=== PATIENT | female | born 1975 | race Caucasian/White ===

== ENCOUNTER 2016-07-28 11:05 | Emergency (ER) | payer SELFPAY ==
[~2016-07-28] VITALS: Ht 162.6 cm; Wt 45.0 kg
[2016-07-28 11:07] VITALS: BP 156/83; PULSE 102; RESP 24; TEMP 97.9; O2SAT 99
[2016-07-28] MEDS ORDERED: SODIUM CHLOR 0.9% 1000 ML INJ 1,000 ML IV SCH (12:12)
[2016-07-28] MEDS ORDERED: VANCOMYCIN INJ 700 MG in SODIUM CHLOR 0.9% 250 ML INJ 250 ML IV ONE (12:15)
[2016-07-28] MEDS ORDERED: TETANUS/DIPHTHERIA TOXOID ADULT 0.5 ML VIAL IM ONE (12:15)
[2016-07-28] MEDS ORDERED: MORPHINE SULFATE 4 MG/ML INJ IV PUSH ONE ×2 (12:15→16:45)
[2016-07-28 12:42] LABS: AUTOMATED NEUTROPHIL # 6.6 TH/MM3 (1.8-7.7); BASOPHIL % 0.3 % (0.0-2.0); EOSINOPHIL % 0.5 % (0.0-4.0); HEMO FLAGS DIFF FINAL; LYMPH % 16.4 % (9.0-44.0); LYMPHOCYTE # 1.4 TH/MM3 (1.0-4.8); MEAN CELL VOLUME 80.7 FL (80.0-100.0); MEAN CORPUSCULAR HEMOGLOBIN 26.9 PG (27.0-34.0); MEAN CORPUSCULAR HGB CONC 33.3 % (32.0-36.0); MONO % 5.3 % (0.0-8.0); NEUT % 77.5 % (16.0-70.0); PLATELET COUNT 407 TH/MM3 (150-450); RED BLOOD COUNT 5.21 MIL/MM3 (4.00-5.30); RED CELL DISTRIBUTION WIDTH 15.5 % (11.6-17.2); WHITE BLOOD COUNT 8.5 TH/MM3 (4.0-11.0)
[2016-07-28 12:51] LABS: BACTERIA, URINE RARE /hpf; BLOOD, URINE NEG (NEG); COMMENT (UR) CATH-CULTURE IND; CULTURE IF INDICATED CATH CULTURE IND; GLUCOSE,URINE NEG (NEG); KETONE, URINE NEG (NEG); MUCUS URINE FEW /lpf (OCC); NITRITE,URINE NEG (NEG); PH, URINE 6.5 (5.0-8.5); SQUAMOUS EPITHELIAL CELL URINE 15 /hpf (0-5); URINE COLOR YELLOW (YELLW/STRAW)
[2016-07-28 12:53] LABS: APTT (PATIENT) 23.6 SEC (24.3-30.1); INTERNATIONAL NORMALIZED RATIO 0.9 RATIO; PROTHROMBIN TIME - PATIENT 10.2 SEC (9.8-11.6)
[2016-07-28 12:59] LABS: ALKALINE PHOSPHATASE 153 U/L (45-117); TOTAL BILIRUBIN ADULT 0.4 MG/DL (0.2-1.0)
[2016-07-28 13:00] VITALS: BP 140/81; PULSE 96; RESP 17; TEMP 97.8; O2SAT 99
[2016-07-28 13:00] LABS: ALT (GPT) 23 U/L (10-53); ANION GAP 7 MEQ/L (5-15); AST (GOT) 23 U/L (15-37); BICARBONATE 27.1 MEQ/L (21.0-32.0); BLOOD UREA NITROGEN 10 MG/DL (7-18); CHLORIDE 105 MEQ/L (98-107); GLOMERULAR FILTRATION RATE 87 ML/MIN (>89); SODIUM (NA) 139 MEQ/L (136-145)
--- NOTE | 2016-07-28 13:13 | RADRPT ---
EXAM DATE/TIME: 07/28/2016 12:57 [place] COMPARISON: No previous studies available for comparison. INDICATIONS : Spider bite top of ankle swelling with redness. MEDICAL HISTORY : None. SURGICAL HISTORY : None. ENCOUNTER: Initial ACUITY: 2 days PAIN SCORE: 10/10 LOCATION: Left ankle. FINDINGS: There is focal soft tissue swelling along the dorsum of the left ankle. There is no acute fracture or dislocation. No radiopaque foreign bodies noted. CONCLUSION: Focal soft tissue swelling along the dorsum of the left ankle. No acute fracture, dis location or radiopaque foreign body. Virgilio Velazquez MD on July 28, 2016 at 13:11 Board Certified Radiologist. This report was verified electronically.
[2016-07-28] MEDS: SODIUM CHLORIDE 0.9% FLUSH 5 ML FLUSH IVF PRN ×2 (14:15→16:45)
[2016-07-28 15:00] VITALS: BP 142/81; PULSE 89; RESP 17; TEMP 97.8; O2SAT 99
[2016-07-28] MEDS ORDERED: LIDOCAINE HCL 1% 30 ML VIAL INFIL ONE (15:30)
[2016-07-28 16:50] VITALS: RESP 17
[2016-07-28 17:03] LABS: AMPHETAMINE, URINE NEG (NEG); BARBITURATES, URINE NEG (NEG); COCAINE, URINE POS (NEG)
[2016-07-28] MEDS ORDERED: CEPH-460 PO (17:47)
[2016-07-28] MEDS ORDERED: BACT800T5 PO (17:47)
--- NOTE | 2016-07-28 17:47 | PD ---
HPI Chief Complaint: Skin Problem Time Seen by Provider: 11:37 Travel History International Travel<30 days: No Contact w/Intl Traveler<30days: No Traveled to known affect area: No History of Present Illness HPI Patient is a 40-year-old female with history of IV drug abuse, presents to emergency room with complaints of abscess to her left foot. Patient reports that she thinks that she was bit by a bug on her left foot 2-3 days ago. Patient reports that the bug bites started out very small, reports that today the bite has turned into an abscess with redness surrounding it. Patient reports increased pain to her left foot as well as swelling. Patient denies injecting drugs into her left foot. Patient reports that her tetanus is not up- to-date. Denies fevers or chills. Denies nausea vomiting. PFSH Past Medical History Arthritis: No Asthma: No Autoimmune Disease: No Blood Disorders: No Anxiety: Yes Depression: Yes Heart Rhythm Problems: No Cancer: No Cardiovascular Problems: No High Cholesterol: No Chemotherapy: No Chest Pain: No Congestive Heart Failure: No COPD: No Cerebrovascular Accident: No Diabetes: No Diminished Hearing: No Endocrine: No GERD: No Genitourinary: Yes (ENDOMETRIOSIS) Hiatal Hernia: No Immune Disorder: No Kidney Stones: No Musculoskeletal: No Neurologic: No Psychiatric: Yes Reproductive: No (stopped menses 2yrs ago) Respiratory: Yes (MASS RIGHT LUNG) Migraines: No Radiation Therapy: No Renal Failure: No Seizures: No Sickle Cell Disease: No Sleep Apnea: No Thyroid Disease: No Ulcer: No Tetanus Vaccination: > 5 Years Influenza Vaccination: No ?: Not LMP: 2015 : 1 Para: 1 Past Surgical History Abdominal Surgery: Yes (ENDOMETRIOSIS) AICD: No Arteriovenous Shunt: No Cardiac Surgery: No Ear Surgery: No Endocrine Surgery: No Eye Surgery: No Genitourinary Surgery: No Gynecologic Surgery: No Insulin Pump: No Joint Replacement: No Oral Surgery: No Pacemaker: No Thoracic Surgery: No Other Surgery: Yes (L HAND FROM IV DRUG USE) Family History Family History: Negative Social History Alcohol Use: No (QUIT 2006) Tobacco Use: Yes (07/17 PPD) Substance Use: Yes (IV OXYCODONE, MORPHINE, DILAUDID) Allergies-Medications (Allergen,Severity, Reaction): Coded Allergies: *MDRO Multi-Drug Resistant Organism (Verified Adverse Reaction, Unknown, ) MRSA (forearm wound/fluid) - 01/18/16; MRSA (leg-06/02/16) Reported Meds & Prescriptions Reported Meds & Active Scripts Active Keflex (Cephalexin) 500 Mg Cap 500 Mg PO Q6H 10 Days Bactrim DS (Sulfamethoxazole-Trimethoprim) 800-160 Mg Tab 2 Tab PO BID Review of Systems General / Constitutional: No: Fever, Chills Eyes: No: Visual changes HENT: No: Headaches Cardiovascular: No: Chest Pain or Discomfort Respiratory: No: Shortness of Breath Gastrointestinal: No: Abdominal Pain Genitourinary: No: Dysuria Musculoskeletal: No: Pain Skin: Positive Other (abscess to left foot), No Rash Neurologic: No: Weakness Psychiatric: No: Depression Endocrine: No: Polydipsia Hematologic/Lymphatic: No: Easy Bruising Physical Exam Narrative GENERAL: Patient with no acute distress SKIN: Warm and dry. HEAD: Atraumatic. Normocephalic. EYES: Pupils equal and round. No scleral icterus. No injection or drainage. ENT: No nasal bleeding or discharge. Mucous membranes pink and moist. NECK: Trachea midline. No JVD. CARDIOVASCULAR: Regular rate and rhythm. No murmur appreciated. RESPIRATORY: No accessory muscle use. Clear to auscultation. Breath sounds equal bilaterally. GASTROINTESTINAL: Abdomen soft, non-tender, nondistended. Hepatic and splenic margins not palpable. MUSCULOSKELETAL: No obvious deformities. No clubbing. No cyanosis. Patient with track pack to b/l ac with no signs of infection. Patient with 2x2cm abscess to left medial dorsum of foot NEUROLOGICAL: Awake and alert. PSYCHIATRIC: Appropriate mood and affect; insight and judgment normal. Data Data Last Documented VS Vital Signs Date Time Temp Pulse Resp B/P Pulse Ox O2 Delivery O2 Flow Rate FiO2 07/28/16 16:50 17 07/28/16 15:00 97.8 89 142/81 99 Room Air Orders Complete Blood Count With Diff (07/28/16 12:12) Comprehensive Metabolic Panel (07/28/16 12:12) Urinalysis - C+S If Indicated (07/28/16 12:12) Blood Culture (07/28/16 12:12) Prothrombin Time / Inr (Pt) (07/28/16 12:12) Act Partial Throm Time (Ptt) (07/28/16 12:12) Iv Access Insert/Monitor (07/28/16 12:12) Morphine Inj (Morphine Inj) (07/28/16 12:15) Sodium Chlor 0.9% 1000 Ml Inj (Ns 1000 M (07/28/16 12:12) Sodium Chloride 0.9% Flush (Ns Flush) (07/28/16 12:15) Ed Urine Pregnancytest Poc (07/28/16 12:12) Ankle, Complete ([id number]) (07/28/16 ) Drug Screen, Random Urine (07/28/16 12:12) Vancomycin Inj (Vancomycin Inj) (07/28/16 12:15) Tetanus/Diphtheria Tox Adult (Tetanus/Di (07/28/16 12:15) Urine Culture (07/28/16 12:20) Lidocaine 1% Inj (Xylocaine 1% Inj) (07/28/16 15:30) Morphine Inj (Morphine Inj) (07/28/16 16:45) Labs Laboratory Tests Test 07/28/16 12:20 White Blood Count 8.5 TH/MM3 Red Blood Count 5.21 MIL/MM3 Hemoglobin 14.0 GM/DL Hematocrit 42.0 % Mean Corpuscular Volume 80.7 FL Mean Corpuscular Hemoglobin 26.9 PG Mean Corpuscular Hemoglobin 33.3 % Concent Red Cell Distribution Width 15.5 % Platelet Count 407 TH/MM3 Mean Platelet Volume 7.0 FL Neutrophils (%) (Auto) 77.5 % Lymphocytes (%) (Auto) 16.4 % Monocytes (%) (Auto) 5.3 % Eosinophils (%) (Auto) 0.5 % Basophils (%) (Auto) 0.3 % Neutrophils # (Auto) 6.6 TH/MM3 Lymphocytes # (Auto) 1.4 TH/MM3 Monocytes # (Auto) 0.4 TH/MM3 Eosinophils # (Auto) 0.0 TH/MM3 Basophils # (Auto) 0.0 TH/MM3 CBC Comment DIFF FINAL Differential Comment Prothrombin Time 10.2 SEC Prothromb Time International 0.9 RATIO Ratio Activated Partial 23.6 SEC Thromboplast Time Urine Color YELLOW Urine Turbidity HAZY Urine pH 6.5 Urine Specific [place] 1.011 Urine Protein TRACE mg/dL Urine Glucose (UA) NEG mg/dL Urine Ketones NEG mg/dL Urine Occult Blood NEG Urine Nitrite NEG Urine Bilirubin NEG Urine Urobilinogen LESS THAN 2.0 MG/DL Urine Leukocyte Esterase LARGE Urine RBC 5 /hpf Urine WBC 33 /hpf Urine Squamous Epithelial 15 /hpf Cells Urine Bacteria RARE /hpf Urine Mucus FEW /lpf Microscopic Urinalysis Comment CATH-CULTURE IND Sodium Level 139 MEQ/L Potassium Level 4.0 MEQ/L Chloride Level 105 MEQ/L Carbon Dioxide Level 27.1 MEQ/L Anion Gap 7 MEQ/L Blood Urea Nitrogen 10 MG/DL Creatinine 0.74 MG/DL Estimat Glomerular Filtration 87 ML/MIN Rate Random Glucose 93 MG/DL Calcium Level 9.5 MG/DL Total Bilirubin 0.4 MG/DL Aspartate Amino Transf 23 U/L (AST/SGOT) Alanine Aminotransferase 23 U/L (ALT/SGPT) Alkaline Phosphatase 153 U/L Total Protein 9.0 GM/DL Albumin 3.5 GM/DL Urine Opiates Screen NEG Urine Barbiturates Screen NEG Urine Amphetamines Screen NEG Urine Benzodiazepines Screen NEG Urine Cocaine Screen POS Urine Cannabinoids Screen POS MDM Medical Decision Making Medical Screen Exam Complete: Yes Emergency Medical Condition: Yes Interpretation(s) Vital Signs Date Time Temp Pulse Resp B/P Pulse Ox O2 Delivery O2 Flow Rate FiO2 07/28/16 16:50 17 07/28/16 15:00 97.8 89 17 142/81 99 Room Air 07/28/16 13:00 97.8 96 17 140/81 99 Room Air 07/28/16 12:28 17 07/28/16 11:17 17 07/28/16 11:07 97.9 102 24 156/83 99 Room Air CBC & BMP Diagram 07/28/16 12:20 Last Impressions Ankle X-Ray 07/28/16 0000 Signed Impressions: Service Date/Time: Thursday, July 28, 2016 12:57 - CONCLUSION: Focal soft tissue swelling along the dorsum of the left ankle. No acute fracture, dislocation or radiopaque foreign body. Virgilio Velazquez MD Differential Diagnosis Abscess and cellulitis to left foot for past 3 days. Narrative Course 40-year-old female with history of IV drug abuse, presents to the emergency room with abscess to left foot. Patient reports that she was bit by a bug 3 days ago and reports that the bug bites turned into an abscess. Patient reports that her tetanus is not up-to-date. Patient's tetanus is updated. CBC, BMP, x-ray of foot ordered to evaluate for possible osteomyelitis Patient's pain was managed with morphine. X-ray shows focal swelling on the dorsum left ankle. No osteomyelitis. Patient was given a dose of IV antibiotics Patient was I&D'ed, patient had significant pus drainage from abscess Discussed with patient need to return to the emergency room and 2 days for wound check. Discussed signs and symptoms of when to return to the emergency room. Discussed with patient that she needs to keep this area clean, recommended bacitracin dressings. Procedures Procedure Narrative INCISION AND DRAINAGE OF ABSCESS: The area was prepped and was sterilely draped. A subcutaneous wheal of 1 % lidocaine with a total number 2 mL was used to anesthetize the area properly. A number 11 scalpel was used to make a 0.5 -cm incision across the area of the abscess of left foot. The abscess was drained, complex loculations were broken down, and irrigated with normal saline. Sterile dressing applied. Patient advised to return to ER in 2 days for wound check. I did try to place packing to abscess, patient refused packing. Diagnosis Primary Impression: Cellulitis and abscess of foot, except toes Additional Impression: UTI (urinary tract infection) Qualified Code: N30.00 - Acute cystitis without hematuria Patient Instructions: Narcotic given in the ED, General Instructions Additional Instructions: Please return to ER as needed Please return to the emergency room in 2 days for wound check Please take full course of antibiotics Return to the emergency room immediately if you develop swelling, fevers chills , streaking or redness up your leg Med/Other Pt SpecificInfo: Prescription(s) given, Wound Care Scripts Cephalexin (Keflex)500 Mg Jru301 Mg PO Q6H 10 Days Ref 0 Prov:Mireille Chatman DO 07/28/16 Sulfamethoxazole-Trimethoprim (Bactrim DS)800-160 Mg Tab2 Tab PO BID #40 TAB Ref 0 Prov:Mireille Chatman DO 07/28/16 Disposition: 01 DISCHARGE HOME Condition: Stable Mireille Chatman DO Jul 28, 2016 17:47
[2016-07-28 17:54] VITALS: BP 122/77; TEMP 98.1
== END 2016-07-28 18:02 | disposition home or self-care (01) ==
LOC: NEPA 11:05
DX: L02.612 Cutaneous abscess of left foot (principal); N30.00 Acute cystitis without hematuria; B96.89 Other specified bacterial agents as the cause of diseases classified elsewhere; Z23 Encounter for immunization
CPT/HCPCS: 10060; 73610; 80053; 80307; 81001; 84703; 85025; 85610; 85730; 87040; 87086; 90471; 90714; 96361; 96365; 96375; 99283; J2270; J3370; J7030; J7050

== ENCOUNTER 2017-02-20 12:43 | Inpatient (IN) | payer SELFPAY ==
[~2017-02-20] VITALS: Ht 162.6 cm; Wt 47.1 kg
[~2017-02-20 12:43] MED LIST: BACT800T5 PO; CEPH-460 PO
[2017-02-20 12:48] VITALS: BP 115/70; PULSE 116; RESP 16; TEMP 98.6; O2SAT 99
--- NOTE | 2017-02-20 13:01 | PD ---
Physical Exam Time Seen by Provider: 13:00 Narrative 41 y/o female here with L jewell redness, tenderness. Hypothesizes she was bit by a spider. Vital signs reviewed. Seen at triage desk. Awaiting bed placement. Data Data Last Documented VS Vital Signs Date Time Temp Pulse Resp B/P Pulse Ox O2 Delivery O2 Flow Rate FiO2 02/20/17 12:48 98.6 116 16 115/70 99 MDM Medical Record Reviewed: Yes Supervised Visit with RODRIGO: Fan Levy Feb 20, 2017 13:01
--- NOTE | 2017-02-20 15:02 | PD ---
HPI Chief Complaint: Bite or Sting Time Seen by Provider: 15:01 Travel History International Travel<30 days: No Contact w/Intl Traveler<30days: No Traveled to known affect area: No History of Present Illness HPI 41 YO F with PMH of IVDA, MRSA presents to the ED for evaluation of "3 or 4" day history of left lower leg pain, redness and swelling. Gradual onset. Patient can't identify no acute injury. She denies IV drug use in the area. She endorses chills, nausea. She denies numbness, tingling, weakness, limitations to range of motion of the extremity. No treatment at that home. PFSH Past Medical History Arthritis: No Asthma: No Autoimmune Disease: No Blood Disorders: No Anxiety: Yes Depression: Yes Heart Rhythm Problems: No Cancer: No Cardiovascular Problems: No High Cholesterol: No Chemotherapy: No Chest Pain: No Congestive Heart Failure: No COPD: No Cerebrovascular Accident: No Diabetes: No Diminished Hearing: No Endocrine: No GERD: No Genitourinary: Yes (ENDOMETRIOSIS) Hiatal Hernia: No Immune Disorder: No Kidney Stones: No Musculoskeletal: No Neurologic: No Psychiatric: Yes Reproductive: No (stopped menses 2yrs ago) Respiratory: Yes (MASS RIGHT LUNG) Migraines: No Radiation Therapy: No Renal Failure: No Seizures: No Sickle Cell Disease: No Sleep Apnea: No Thyroid Disease: No Ulcer: No ?: Not : 1 Para: 1 Past Surgical History Abdominal Surgery: Yes (ENDOMETRIOSIS) AICD: No Arteriovenous Shunt: No Cardiac Surgery: No Ear Surgery: No Endocrine Surgery: No Eye Surgery: No Genitourinary Surgery: No Gynecologic Surgery: No Insulin Pump: No Joint Replacement: No Oral Surgery: No Pacemaker: No Thoracic Surgery: No Other Surgery: Yes (L HAND FROM IV DRUG USE) Social History Alcohol Use: No (QUIT 2006) Tobacco Use: Yes (07/17 PPD) Substance Use: Yes (IV OXYCODONE, MORPHINE, DILAUDID) Allergies-Medications (Allergen,Severity, Reaction): Coded Allergies: *MDRO Multi-Drug Resistant Organism (Verified Adverse Reaction, Unknown, ) MRSA (forearm wound/fluid) - 01/18/16; MRSA (leg-06/02/16) Reported Meds & Prescriptions Reported Meds & Active Scripts Active No Active Prescriptions or Reported Medications Review of Systems Except as stated in HPI: all other systems reviewed are Neg Physical Exam Narrative GENERAL: Thin, disheveled, distraught white female in no acute distress. SKIN: Focused skin assessment warm/dry. SKIN: There is an indurated area in the left anterior jewell which measures about 6 cm in diameter. It is fluctuant but there is no pointing or drainage. There is a zone of inflammation around it but no lymphangitis. HEAD: Normocephalic. EYES: No scleral icterus. No injection or drainage. NECK: Supple, trachea midline. No JVD or lymphadenopathy. CARDIOVASCULAR: Regular rate and rhythm without murmurs, gallops, or rubs. RESPIRATORY: Breath sounds clear and equal bilaterally. No accessory muscle use. GASTROINTESTINAL: Abdomen soft, non-tender, nondistended. MUSCULOSKELETAL: No cyanosis, or edema. Patient retains full, active, painless range of motion of the left lower extremity. BACK: Nontender without obvious deformity. No CVA tenderness. Data Data Last Documented VS Vital Signs Date Time Temp Pulse Resp B/P Pulse Ox O2 Delivery O2 Flow Rate FiO2 02/20/17 15:20 98.6 112 16 118/70 99 Room Air Orders Complete Blood Count With Diff (02/20/17 15:17) Blood Culture (02/20/17 15:17) Comprehensive Metabolic Panel (02/20/17 15:17) Direct Bilirubin (02/20/17 15:17) Wound Culture And Gram Stain (02/20/17 15:26) Ketorolac Inj (Toradol Inj) (02/20/17 15:30) Lidocaine 1% Inj (Xylocaine 1% Inj) (02/20/17 15:30) Urinalysis - C+S If Indicated (02/20/17 16:16) Ed Urine Pregnancytest Poc (02/20/17 16:16) Urine Culture (02/20/17 15:45) Lactic Acid Sepsis Protocol (02/20/17 16:35) Cefepime Inj (Maxipime Inj) (02/20/17 16:35) Vancomycin Inj (Vancomycin Inj) (02/20/17 16:35) Sodium Chlor 0.9% 1000 Ml Inj (Ns 1000 M (02/20/17 16:35) Sodium Chlor 0.9% 1000 Ml Inj (Ns 1000 M (02/20/17 16:35) Admit Order (Ed Use Only) (02/20/17 17:07) Labs Laboratory Tests Test 02/20/17 15:45 White Blood Count 27.1 TH/MM3 Red Blood Count 4.15 MIL/MM3 Hemoglobin 11.8 GM/DL Hematocrit 33.0 % Mean Corpuscular Volume 79.4 FL Mean Corpuscular Hemoglobin 28.5 PG Mean Corpuscular Hemoglobin 35.9 % Concent Red Cell Distribution Width 14.6 % Platelet Count 433 TH/MM3 Mean Platelet Volume 7.2 FL Neutrophils (%) (Auto) 95.5 % Lymphocytes (%) (Auto) 2.7 % Monocytes (%) (Auto) 1.7 % Eosinophils (%) (Auto) 0.0 % Basophils (%) (Auto) 0.1 % Neutrophils # (Auto) 25.8 TH/MM3 Lymphocytes # (Auto) 0.7 TH/MM3 Monocytes # (Auto) 0.5 TH/MM3 Eosinophils # (Auto) 0.0 TH/MM3 Basophils # (Auto) 0.0 TH/MM3 CBC Comment DIFF FINAL Differential Comment Urine Color YELLOW Urine Turbidity HAZY Urine pH 5.5 Urine Specific [place] 1.010 Urine Protein TRACE mg/dL Urine Glucose (UA) NEG mg/dL Urine Ketones NEG mg/dL Urine Occult Blood NEG Urine Nitrite NEG Urine Bilirubin NEG Urine Urobilinogen 2.0 MG/DL Urine Leukocyte Esterase LARGE Urine RBC 16 /hpf Urine WBC 11 /hpf Urine Squamous Epithelial 10 /hpf Cells Urine Amorphous Sediment RARE Urine Bacteria MANY /hpf Urine Mucus FEW /lpf Microscopic Urinalysis Comment CULTURE INDICATED Sodium Level 132 MEQ/L Potassium Level 4.7 MEQ/L Chloride Level 99 MEQ/L Carbon Dioxide Level 24.6 MEQ/L Anion Gap 8 MEQ/L Blood Urea Nitrogen 16 MG/DL Creatinine 1.07 MG/DL Estimat Glomerular Filtration 57 ML/MIN Rate Random Glucose 113 MG/DL Calcium Level 8.6 MG/DL Total Bilirubin 1.1 MG/DL Direct Bilirubin LESS THAN 0.1 MG/DL Aspartate Amino Transf 105 U/L (AST/SGOT) Alanine Aminotransferase 38 U/L (ALT/SGPT) Alkaline Phosphatase 431 U/L Total Protein 9.0 GM/DL Albumin 2.5 GM/DL MDM Medical Decision Making Medical Screen Exam Complete: Yes Emergency Medical Condition: Yes Differential Diagnosis Furuncle versus carbuncle versus abscess versus cellulitis versus other Narrative Course 41 YO F with PMH of IVDA, MRSA presents to the ED for evaluation of "3 or 4" day history of left lower leg pain, redness and swelling. Gradual onset. Patient can't identify no acute injury. She denies IV drug use in the area. She endorses chills, nausea. She denies numbness, tingling, weakness, limitations to range of motion of the extremity. Patient is afebrile and tachycardic on presentation. There is a large abscess on the anterior left jewell and possible early abscess on the right elbow. Physical exam otherwise unremarkable. I attempted an I&D but the patient would not allow me to continue secondary to pain. No one cultures were obtained. CBC: Leukocytosis of 27.1 with a left shift. Lactic acid 2.6. CMP: Sodium 32 UA: Hazy, large leukocyte esterase, 11 wbc's. Sepsis protocol was initiated. Patient was administered IV vancomycin and Zosyn. She is agreeable to admission. I spoke with Dr. Layton who agrees to accept the patient to the medicine service. Please see medicine notes for disposition. Procedures Procedure Narrative INCISION AND DRAINAGE OF ABSCESS: The area was prepped and was sterilely draped. A subcutaneous wheal of 1 % Xylocaine with epinephrine with a total number 2 mL was used to anesthetize the area properly. A number 11 scalpel was used to make a 0.5-cm incision across the area of the abscess. At this point the patient cried out in pain, sat up in the bed, grabbed my hand. She would not allow me to obtain cultures or continue the procedure. Sepsis Criteria SIRS Criteria (2 or more): Heart rate over 90, WBC > 78009, < 4000 or > 10% bands Sepsis Criteria (SIRS+source): Infect source susp/known Scripts No Active Prescriptions or Reported Meds Angeles Ott Feb 20, 2017 15:02
[2017-02-20 15:20] VITALS: BP 118/70; PULSE 112; RESP 16; TEMP 98.6; O2SAT 99
[2017-02-20] MEDS ORDERED: ASP: Does not meet inpatient admission criteria OTHER ONE (15:30)
[2017-02-20] MEDS ORDERED: ASP: Location of Dalbavancin administration OTHER ONE (15:30)
[2017-02-20] MEDS ORDERED: ASP: No known hypersensitivity to Vanco, Telavancin, Dalbavancin OTHER ONE (15:30)
[2017-02-20] MEDS ORDERED: KETOROLAC TROMETHAMINE 30 MG/ML (IVP) VIAL IVP ONE (15:30)
[2017-02-20] MEDS ORDERED: LIDOCAINE HCL 1% 30 ML VIAL INFIL ONE (15:30)
[2017-02-20] MEDS ORDERED: ASP: Only reason for admit - IV antibiotics OTHER ONE (15:30)
[2017-02-20 16:11] LABS: AUTOMATED NEUTROPHIL # 25.8 TH/MM3 (1.8-7.7); BASOPHIL % 0.1 % (0.0-2.0); HEMO FLAGS DIFF FINAL; LYMPH % 2.7 % (9.0-44.0); LYMPHOCYTE # 0.7 TH/MM3 (1.0-4.8); MEAN CELL VOLUME 79.4 FL (80.0-100.0); MEAN CORPUSCULAR HEMOGLOBIN 28.5 PG (27.0-34.0); MEAN CORPUSCULAR HGB CONC 35.9 % (32.0-36.0); MONO % 1.7 % (0.0-8.0); NEUT % 95.5 % (16.0-70.0); PLATELET COUNT 433 TH/MM3 (150-450); RED BLOOD COUNT 4.15 MIL/MM3 (4.00-5.30); RED CELL DISTRIBUTION WIDTH 14.6 % (11.6-17.2); WHITE BLOOD COUNT 27.1 TH/MM3 (4.0-11.0)
[2017-02-20] MEDS ORDERED: VANCOMYCIN INJ 1,000 MG in SODIUM CHLOR 0.9% 250 ML INJ 250 ML IV STA (16:35)
[2017-02-20] MEDS ORDERED: SODIUM CHLOR 0.9% 1000 ML INJ 1,000 ML IV ONE (16:35)
[2017-02-20] MEDS ORDERED: SODIUM CHLOR 0.9% 1000 ML INJ 800 ML IV ONE (16:35)
[2017-02-20] MEDS ORDERED: CEFEPIME INJ 2,000 MG in SODIUM CHLORIDE 0.9% INJ 100 ML IV STA (16:35)
[2017-02-20 16:36] LABS: ALT (GPT) 38 U/L (10-53); BACTERIA, URINE MANY /hpf; BLOOD, URINE NEG (NEG); COMMENT (UR) CULTURE INDICATED; CULTURE IF INDICATED CULTURE INDICATED; GLUCOSE,URINE NEG (NEG); KETONE, URINE NEG (NEG); MUCUS URINE FEW /lpf (OCC); NITRITE,URINE NEG (NEG); PH, URINE 5.5 (5.0-8.5); SQUAMOUS EPITHELIAL CELL URINE 10 /hpf (0-5); URINE COLOR YELLOW (YELLW/STRAW)
[2017-02-20 16:37] LABS: ANION GAP 8 MEQ/L (5-15); AST (GOT) 105 U/L (15-37); BICARBONATE 24.6 MEQ/L (21.0-32.0); BLOOD UREA NITROGEN 16 MG/DL (7-18); CHLORIDE 99 MEQ/L (98-107); GLOMERULAR FILTRATION RATE 57 ML/MIN (>89); SODIUM (NA) 132 MEQ/L (136-145)
[2017-02-20 16:39] LABS: ALKALINE PHOSPHATASE 431 U/L (45-117); POTASSIUM 4.7 MEQ/L (3.5-5.1); TOTAL BILIRUBIN ADULT 1.1 MG/DL (0.2-1.0)
[2017-02-20] MEDS ORDERED: NALOXONE HCL 0.4 MG/ML AMP IV PRN (17:30)
[2017-02-20] MEDS ORDERED: MAGNESIUM HYDROXIDE SUSP 30 ML CUP PO PRN (17:30)
[2017-02-20] MEDS ORDERED: SENNOSIDES 8.6 MG TAB PO PRN (17:30)
[2017-02-20] MEDS ORDERED: BISACODYL 10 MG SUPP RECTAL PRN (17:30)
[2017-02-20] MEDS ORDERED: ACETAMINOPHEN 325 MG TAB PO PRN (17:30)
[2017-02-20] MEDS ORDERED: ONDANSETRON HCL 4 MG/2 ML VIAL IVP PRN (17:30)
[2017-02-20] MEDS ORDERED: LACTULOSE SYRUP 20 GM/30 ML CUP PO PRN (17:30)
[2017-02-20] MEDS ORDERED: VANCOMYCIN INJ 1,000 MG in SODIUM CHLOR 0.9% 250 ML INJ 250 ML IV SCH (17:45)
[2017-02-20] MEDS ORDERED: Vancomycin Consult Pharmacy 1 EA OTHER SCH (17:45)
[2017-02-20] MEDS ORDERED: ACETAMINOPHEN/HYDROcodone 325 MG/5 MG TAB PO PRN (17:45)
--- NOTE | 2017-02-20 18:05 | HHI.HP ---
HPI Service [facility] Hospitalists Primary Care Physician No Primary Care Physician Admission Diagnosis SEPSIS abscess, cellulitis, UTI Diagnoses: Chief Complaint: Left leg abscess Travel History International Travel<30 Days: No Contact w/Intl Traveler <30 Da: No Traveled to Known Affected Are: No Sepsis Criteria SIRS Criteria (2 or more): Heart rate over 90, WBC > 55991, < 4000 or > 10% bands Sepsis Criteria (SIRS+source): Infect source susp/known History of Present Illness This is a 41-year-old female with a past medical history significant for hepatitis C, IV drug use, history of recurrent abscesses, history of MRSA and endometriosis who presents to [facility] ED with complaints of left lower leg pain and swelling since Sunday. Patient thinks she may have been bitten by a bug. She is adamant that she did not inject IV drugs in the leg. She states on Sunday she drained the area herself with a large amount of pus expressed followed by application of topical Neosporin. She endorses fever and chills. She denies any numbness, tingling or weakness in the area. She reports some chest pain today but she attributes that to anxiety coming into the hospital. She denies any shortness of breath. She denies any hematuria or dysuria. She denies any diarrhea or constipation. In the ED, patient is found to have elevated white count of 27.1. She is tachycardic with a heart rate of 116. She is afebrile. Lactic acid is pending. Review of Systems Except as stated in HPI: all other systems reviewed are Neg Past Family Social History Past Medical History IVDU Hep C Endometriosis Anxiety Recurrent abscesses Past Surgical History Previous I&D of the arm Right knee arthroscopic surgery Bronchoscopy Laparotomy Reported Medications No Active Prescriptions or Reported Medications Allergies: Coded Allergies: *MDRO Multi-Drug Resistant Organism (Verified Adverse Reaction, Unknown, ) MRSA (forearm wound/fluid) - 01/18/16; MRSA (leg-06/02/16) Active Ordered Medications Current Medications Medications (Trade) Dose Ordered Sig/Umm Route Start Time Stop Time Status Last Admin Sodium Chloride 1,000 ml @ 1,000 mls/hr Q1H ONCE IV 02/20/17 16:35 02/20/17 17:34 02/20/17 17:22 (NS 1000 ml Inj) 1,000 ml @ 100 mls/hr Q10H IV 02/20/17 17:22 UNV (NS Flush) 2 ml UNSCH PRN IV FLUSH 02/20/17 17:30 UNV (NS Flush) 2 ml BID IV FLUSH 02/20/17 21:00 UNV (Tylenol) 650 mg Q4H PRN PO 02/20/17 17:30 UNV (Zofran Inj) 4 mg Q6H PRN IVP 02/20/17 17:30 UNV (Narcan Inj) 0.4 mg UNSCH PRN IV 02/20/17 17:30 UNV (Brenad-Colace) 1 tab BID PO 02/20/17 21:00 UNV (Milk Of Magnesia Liq) 30 ml Q12H PRN PO 02/20/17 17:30 UNV (Senokot) 17.2 mg Q12H PRN PO 02/20/17 17:30 UNV (Dulcolax Supp) 10 mg DAILY PRN RECTAL 02/20/17 17:30 UNV (Lactulose Liq) 30 ml DAILY PRN PO 02/20/17 17:30 UNV Family History Father, age 63, [place] Mother, , surgery complication Social History Patient admits to tobacco use of 5 cigarettes per day. Previously she smoked half pack per day and began smoking at age 15. She denies any alcohol use. She admits to IV drug use of morphine, Dilaudid and oxycodone and last used IV Dilaudid 1 week ago. Physical Exam Vital Signs Vital Signs Date Time Temp Pulse Resp B/P Pulse Ox O2 Delivery O2 Flow Rate FiO2 02/20/17 15:20 98.6 112 16 118/70 99 Room Air 02/20/17 12:48 98.6 116 16 115/70 99 Physical Exam GENERAL: This is a thin frail female, in no apparent distress. Appears older than stated age. SKIN: 6 cm indurated area on the left anterior jewell with surrounding area of erythema. The is soft and fluctuant but no active drainage noted. Patient has multiple pick pack over skin. HEAD: Atraumatic. Normocephalic. No temporal or scalp tenderness. EYES: Pupils equal round and reactive. Extraocular motions intact. No scleral icterus. No injection or drainage. ENT: Nose without bleeding or purulent drainage. Throat without erythema, tonsillar hypertrophy or exudate. Uvula midline. Airway patent. NECK: Trachea midline. No lymphadenopathy. Supple, nontender, no meningeal signs. CARDIOVASCULAR: Regular rate and rhythm without murmurs, gallops, or rubs. RESPIRATORY: Clear to auscultation. Breath sounds equal bilaterally. No wheezes , rales, or rhonchi. GASTROINTESTINAL: Abdomen soft, non-tender, nondistended. No hepato-splenomegaly , or palpable masses. No guarding. MUSCULOSKELETAL: Extremities without clubbing, cyanosis, or edema. No joint tenderness, effusion, or edema noted. No calf tenderness. NEUROLOGICAL: Awake and alert. Able to move all extremities. Normal speech. Laboratory Laboratory Tests Test 02/20/17 15:45 White Blood Count 27.1 Red Blood Count 4.15 Hemoglobin 11.8 Hematocrit 33.0 Mean Corpuscular Volume 79.4 Mean Corpuscular Hemoglobin 28.5 Mean Corpuscular Hemoglobin 35.9 Concent Red Cell Distribution Width 14.6 Platelet Count 433 Mean Platelet Volume 7.2 Neutrophils (%) (Auto) 95.5 Lymphocytes (%) (Auto) 2.7 Monocytes (%) (Auto) 1.7 Eosinophils (%) (Auto) 0.0 Basophils (%) (Auto) 0.1 Neutrophils # (Auto) 25.8 Lymphocytes # (Auto) 0.7 Monocytes # (Auto) 0.5 Eosinophils # (Auto) 0.0 Basophils # (Auto) 0.0 CBC Comment DIFF FINAL Differential Comment Urine Color YELLOW Urine Turbidity HAZY Urine pH 5.5 Urine Specific [place]ira 1.010 Urine Protein TRACE Urine Glucose (UA) NEG Urine Ketones NEG Urine Occult Blood NEG Urine Nitrite NEG Urine Bilirubin NEG Urine Urobilinogen 2.0 Urine Leukocyte Esterase LARGE Urine RBC 16 Urine WBC 11 Urine Squamous Epithelial 10 Cells Urine Amorphous Sediment RARE Urine Bacteria MANY Urine Mucus FEW Microscopic Urinalysis Comment CULTURE INDICATED Sodium Level 132 Potassium Level 4.7 Chloride Level 99 Carbon Dioxide Level 24.6 Anion Gap 8 Blood Urea Nitrogen 16 Creatinine 1.07 Estimat Glomerular Filtration 57 Rate Random Glucose 113 Calcium Level 8.6 Total Bilirubin 1.1 Direct Bilirubin LESS THAN 0.1 Aspartate Amino Transf 105 (AST/SGOT) Alanine Aminotransferase 38 (ALT/SGPT) Alkaline Phosphatase 431 Total Protein 9.0 Albumin 2.5 Date/Time Procedure Status Source Growth 02/20/17 15:45 Urine Culture Received Urine Clean Catch Pending 02/20/17 15:45 Gram Stain - Final Resulted Wound Leg 02/20/17 15:45 Wound Culture Resulted Wound Leg Pending 02/20/17 15:45 Aerobic Blood Culture Received Blood Line Pending 02/20/17 15:45 Anaerobic Blood Culture Received Blood Line Pending Result Diagram: 02/20/17 1545 02/20/17 1545 Assessment and Plan Assessment and Plan 41-year-old female with a past medical history significant for hepatitis C, IV drug use, history of recurrent abscesses, history of MRSA and endometriosis who presents to [facility] ED with complaints of left lower leg pain and swelling since Sunday and found to have a large erythematous abscess left lower leg. Sepsis with tachycardia and elevated white count with source of left lower leg abscess/cellulitis Previous history of MRSA Consult infectious disease Patient given vancomycin and cefepime in the ED. Will continue. Lactic acid pending. We'll follow up. Follow-up on blood culture and wound culture results. Obtain soft tissue ultrasound with possible abscess and need for surgical evaluation Urinary tract infection IV cefepime Follow-up on urine culture results Leukocytosis Tachycardia Secondary to UTI and left leg abscess IV antibiotics IV fluid A.m. labs to monitor trend PRISCILLA Likely due to dehydration IV fluid Avoid nephrotoxic agents A.m. labs to monitor trend Hyponatremia Likely due to dehydration A.m. labs to monitor Hep C Transaminitis Elevated alkaline phosphatase Hep C reactive 01/22/16 Liver ultrasound A.m. labs ordered Ongoing tobaccoism IV drug use Discussed cessation/counseling Nicotine patch ordered DVT prophylaxis Lovenox 40sq Discussed Condition With Dr. Layton, patient, ED PA Physician Certification 2 Midnight Certification Type: Admission for Inpatient Services Order for Inpatient Services The services are ordered in accordance with Medicare regulations or non- Medicare payer requirements, as applicable. In the case of services not specified as inpatient-only, they are appropriately provided as inpatient services in accordance with the 2-midnight benchmark. Estimated LOS (days): 3 3 days is the estimated time the patient will need to remain in the hospital, assuming treatment plan goals are met and no additional complications. Post-Hospital Plan: Not yet determined Collaborating MD Comments Patient complaining of a painful wound on her left lower extremity. She stated that she thinks it started off as a bug bite a few days ago and grew quickly. Patient has history of IV drug use. Denies any fevers or chills. She has no complaints. She denies any urinary symptoms. gen in NAD but very anxious due to pain for an attempted I&D. CV. RRR. no r/m/g Resp CTA B/L abd soft NDNT LE left anterior jewell with wound + erythema and very painful to palpation. + fluctuance. Left lower extremity cellulitis -We'll get ultrasound to see there is any loculation. ED provider Unable to successfully perform an I&D. -We'll give broad-spectrum antibiotics with cefepime and vancomycin -Consult infectious disease to see history of multiple infections. Sepsis -Increased leukocytosis and tachycardia plus infectious source which means patient meets sepsis criteria. -Continuous report of care with IV fluids and treatment as above. -Continue monitor closely. Asymptomatic bacteriuria -Pending urine cultures. Patient will be on antibiotics. History of IV drug use -Will get a urine drug screen. Attestation The exam, history, and the medical decision-making described in the above note were completed with the assistance of the mid-level provider. I reviewed and agree with the findings presented. I attest that I had a [id number] encounter with the patient on the same day, and personally performed and documented my assessment and findings in the medical record. Doris Kuhn Feb 20, 2017 18:05 Sandra Layton MD Feb 20, 2017 18:19
[2017-02-20] MEDS: SODIUM CHLOR 0.9% 1000 ML INJ 1,000 ML IV SCH (18:14)
[2017-02-20 19:28] LABS: LACTIC ACID GHOST NOT REPORTABLE
[2017-02-20 19:43] VITALS: BP 93/57; PULSE 71; RESP 18; TEMP 97.5; O2SAT 100
[2017-02-20] MEDS: ENOXAPARIN SODIUM 40 MG/0.4 ML SYRINGE SQ SCH (20:58)
[2017-02-20] MEDS: DOCUSATE SODIUM 50 MG/SENNA 8.6 MG TAB PO SCH (21:00)
--- NOTE | 2017-02-20 21:02 | RADRPT ---
EXAM DATE/TIME: 02/20/2017 19:45 [place] COMPARISON: No previous studies available for comparison. INDICATIONS : Increased lab values. MEDICAL HISTORY : Right lung mass. Endometriosis. Depression. Anxiety. Substance use. Tobacco use. MRSA. SURGICAL HISTORY : Endometrial surgery. Right knee and hand surgery. Left hand surgery from IV drug use. ENCOUNTER: Initial ACUITY: 1 day PAIN SCORE: 9/10 LOCATION: Bilateral upper quadrant MEASUREMENTS: LIVER: 18.6 cm length COMMON DUCT: 3 mm RIGHT KIDNEY: 11.1 x 5.0 x 4.8 cm SPLEEN: 14.3 cm length FINDINGS: Spleen mildly enlarged to 14 cm and delivered to 19 cm. Colon wall thickening present. No gallstones or biliary ductal dilatation. Portal venous flow normal direction. Right kidney measures 11 cm in [facility]. No hydronephrosis. No free fluid. CONCLUSION: 1. Mild hepatosplenomegaly. Gallbladder wall thickening. No gallstones or biliary ductal dilatation. Esteban Whatley MD on February 20, 2017 at 21:00 Board Certified Radiologist. This report was verified electronically.
[2017-02-20] MEDS: NICOTINE 7 MG/24 HR PATCH T-DERMAL SCH (22:21)
[2017-02-20 22:26] LABS: AMPHETAMINE, URINE NEG (NEG); BARBITURATES, URINE NEG (NEG); COCAINE, URINE NEG (NEG)
[2017-02-20] MEDS: SODIUM CHLORIDE 0.9% FLUSH 10 ML FLUSH IV FLUSH SCH (22:28)
[2017-02-20] MEDS: ACETAMINOPHEN/HYDROcodone 325 MG/10 MG TAB PO PRN (22:29)
[2017-02-21] VITALS: BP 93/53; PULSE 65; RESP 20; TEMP 97; O2SAT 100
[2017-02-21 04:00] VITALS: BP 92/60; PULSE 64; RESP 20; TEMP 97; O2SAT 99
[2017-02-21] MEDS: SODIUM CHLOR 0.9% 1000 ML INJ 1,000 ML IV SCH ×3 (04:12→23:44)
[2017-02-21] MEDS: VANCOMYCIN INJ 750 MG in SODIUM CHLOR 0.9% 250 ML INJ 250 ML IV SCH ×2 (04:13→18:30)
[2017-02-21] MEDS: SODIUM CHLORIDE 0.9% FLUSH 10 ML FLUSH IV FLUSH PRN ×2 (04:13→11:55)
[2017-02-21] MEDS ORDERED: CEFEPIME INJ 2,000 MG in SODIUM CHLORIDE 0.9% INJ 100 ML IV SCH (06:00)
[2017-02-21 07:16] LABS: AUTOMATED NEUTROPHIL # 9.1 TH/MM3 (1.8-7.7); BASOPHIL % 0.3 % (0.0-2.0); EOSINOPHIL # 0.1 TH/MM3 (0-0.4); EOSINOPHIL % 0.7 % (0.0-4.0); HEMATOCRIT 31.4 % (35.0-46.0); HEMO FLAGS DIFF FINAL; LYMPH % 19.6 % (9.0-44.0); LYMPHOCYTE # 2.4 TH/MM3 (1.0-4.8); MEAN CELL VOLUME 81.9 FL (80.0-100.0); MEAN CORPUSCULAR HEMOGLOBIN 26.5 PG (27.0-34.0); MEAN CORPUSCULAR HGB CONC 32.3 % (32.0-36.0); MONO % 4.7 % (0.0-8.0); NEUT % 74.7 % (16.0-70.0); PLATELET COUNT 375 TH/MM3 (150-450); RED BLOOD COUNT 3.84 MIL/MM3 (4.00-5.30); RED CELL DISTRIBUTION WIDTH 15.1 % (11.6-17.2); WHITE BLOOD COUNT 12.2 TH/MM3 (4.0-11.0)
[2017-02-21 07:46] LABS: ALKALINE PHOSPHATASE 275 U/L (45-117); ALT (GPT) 24 U/L (10-53); ANION GAP 7 MEQ/L (5-15); AST (GOT) 28 U/L (15-37); BICARBONATE 23.7 MEQ/L (21.0-32.0); BLOOD UREA NITROGEN 14 MG/DL (7-18); CHLORIDE 111 MEQ/L (98-107); GLOMERULAR FILTRATION RATE 99 ML/MIN (>89); POTASSIUM 3.2 MEQ/L (3.5-5.1); SODIUM (NA) 142 MEQ/L (136-145); TOTAL BILIRUBIN ADULT 0.3 MG/DL (0.2-1.0)
[2017-02-21] MEDS: ACETAMINOPHEN/HYDROcodone 325 MG/10 MG TAB PO PRN ×4 (07:54→20:20)
[2017-02-21] MEDS: NICOTINE 7 MG/24 HR PATCH T-DERMAL SCH (07:54)
[2017-02-21] MEDS: DOCUSATE SODIUM 50 MG/SENNA 8.6 MG TAB PO SCH ×2 (07:54→20:20)
[2017-02-21] MEDS: REMOVE OLD NICOTINE PATCH T-DERMAL SCH (07:55)
[2017-02-21] MEDS: SODIUM CHLORIDE 0.9% FLUSH 10 ML FLUSH IV FLUSH SCH ×2 (07:57→20:17)
[2017-02-21 08:00] VITALS: BP 113/75; PULSE 66; RESP 15; TEMP 95.8; O2SAT 100
[2017-02-21] MEDS ORDERED: POTASSIUM CHLORIDE 10 MEQ CONTROLLED RELEASE TAB PO ONE (10:30)
--- NOTE | 2017-02-21 10:41 | HHI.PR ---
Subjective Remarks Follow-up for sepsis and right lower extreme cellulitis Patient refused the ultrasound. She is asking for more pain medication. She was found sleeping in bed awaken by me. She remains afebrile. Otherwise no acute events. Dealt with patient's nurse in regards to patient's care. Objective Vitals Vital Signs Date Time Temp Pulse Resp B/P Pulse Ox O2 Delivery O2 Flow Rate FiO2 02/21/17 08:00 95.8 66 15 113/75 100 02/21/17 04:00 97.0 64 20 92/60 99 02/21/17 00:00 97.0 65 20 93/53 100 02/20/17 19:43 97.5 71 18 93/57 100 Room Air 02/20/17 15:20 98.6 112 16 118/70 99 Room Air 02/20/17 12:48 98.6 116 16 115/70 99 I/O 02/20/17 02/20/17 02/20/17 02/21/17 02/21/17 02/21/17 07:00 15:00 23:00 07:00 15:00 23:00 Intake Total 240 ml 667 ml Output Total 200 ml Balance 240 ml 467 ml Intake Oral 240 ml 280 ml IV Total 387 ml Output Urine Total 200 ml # Voids 1 # Bowel Movements 0 Result Diagram: 02/21/17 0556 02/21/17 0526 Objective Remarks GENERAL: This is a thin frail female, in no apparent distress sleeping in bed. SKIN: 6 cm indurated area on the left anterior jewell with drastic improvement and erythema around the area. The is soft and fluctuant but no active drainage noted. CARDIOVASCULAR: Regular rate and rhythm without murmurs, gallops, or rubs. RESPIRATORY: Clear to auscultation. Breath sounds equal bilaterally. No wheezes , rales, or rhonchi. GASTROINTESTINAL: Abdomen soft, non-tender, nondistended. No hepato-splenomegaly , or palpable masses. No guarding. MUSCULOSKELETAL: Extremities without clubbing, cyanosis, or edema. No joint tenderness, effusion, or edema noted. No calf tenderness. NEUROLOGICAL: Awake and alert. Able to move all extremities. Normal speech. Medications and IVs Current Medications Miscellaneous Medication (ASP Crit: No rxn to Dal[place]in/Vanco/ [place]) 1 ONCE ONCE OTHER ; Start 02/20/17 at 15:30; Stop 02/20/17 at 15:31; Status Cancel Miscellaneous Medication (ASP Crit: Does not meet inpt admit criteria) 1 ONCE ONCE OTHER ; Start 02/20/17 at 15:30; Stop 02/20/17 at 15:31; Status Cancel Miscellaneous Medication (ASP Crit:Only reason for admit - IV antibioti) 1 ONCE ONCE OTHER ; Start 02/20/17 at 15:30; Stop 02/20/17 at 15:31; Status Cancel Miscellaneous Medication (ASP Crit: Location of [place]in admin) 1 ONCE ONCE OTHER ; Start 02/20/17 at 15:30; Stop 02/20/17 at 15:31; Status Cancel Ketorolac Tromethamine (Toradol Inj) 30 mg ONCE ONCE IVP Last administered on 02/20/17 16:04; Start 02/20/17 at 15:30; Stop 02/20/17 at 15:31; Status DC Lidocaine HCl 30 ml 30 ml ONCE ONCE INFIL Last administered on 02/20/17 16:03 ; Start 02/20/17 at 15:30; Stop 02/20/17 at 15:31; Status DC Cefepime HCl 2000 mg/Sodium Chloride 100 ml @ 200 mls/hr ONCE STAT IV Last administered on 02/20/17 18:13; Start 02/20/17 at 16:35; Stop 02/20/17 at 17:04; Status DC Vancomycin HCl 1000 mg/Sodium Chloride 250 ml @ 250 mls/hr ONCE STAT IV Last administered on 02/20/17 17:21; Start 02/20/17 at 16:35; Stop 02/20/17 at 17:39; Status DC Sodium Chloride 1,000 ml @ 1,000 mls/hr Q1H ONCE IV Last administered on 17:22; Start 02/20/17 at 16:35; Stop 02/20/17 at 17:39; Status DC Sodium Chloride 800 ml @ 1,000 mls/hr Q48M ONCE IV Last administered on 17:21; Start 02/20/17 at 16:35; Stop 02/20/17 at 17:22; Status DC Sodium Chloride (NS 1000 ml Inj) 1,000 ml @ 100 mls/hr Q10H IV Last administered on 02/21/17 04:12; Start 02/20/17 at 18:00 Sodium Chloride (NS Flush) 2 ml UNSCH PRN IV FLUSH FLUSH AFTER USING IV ACCESS Last administered on 02/21/17 04:13; Start 02/20/17 at 17:30 Sodium Chloride (NS Flush) 2 ml BID IV FLUSH Last administered on 02/20/17 22: 28; Start 02/20/17 at 21:00 Acetaminophen (Tylenol) 650 mg Q4H PRN PO TEMP > 100.4; Start 02/20/17 at 17:30 Ondansetron HCl (Zofran Inj) 4 mg Q6H PRN IVP NAUSEA OR VOMITING Last administered on 02/20/17 22:29; Start 02/20/17 at 17:30 Naloxone HCl (Narcan Inj) 0.4 mg UNSCH PRN IV SEE LABEL COMMENTS; Start at 17:30 Senna/Docusate Sodium (Brenda-Colace) 1 tab BID PO Last administered on 02/21/17 07:54; Start 02/20/17 at 21:00 Magnesium Hydroxide (Milk Of Magnesia Liq) 30 ml Q12H PRN PO MILD - MODERATE CONSTIPATION; Start 02/20/17 at 17:30 Sennosides (Senokot) 17.2 mg Q12H PRN PO MODERATE - SEVERE CONSTIPATION; Start 02/20/17 at 17:30 Bisacodyl (Dulcolax Supp) 10 mg DAILY PRN RECTAL SEVERE CONSITIPATION; Start at 17:30 Lactulose 30 ml 30 ml DAILY PRN PO SEVERE CONSITIPATION; Start 02/20/17 at 17:30 Pharmacy Profile Note 0 ml @ 0 mls/hr UNSCH OTHER ; Start 02/20/17 at 17:45 Vancomycin HCl 1000 mg/Sodium Chloride 250 ml @ 250 mls/hr Q12H IV ; Start 02/20 at 17:45; Status UNV Cefepime HCl/ Sodium Chloride (Maxipime Inj/NS Inj) 100 ml @ 200 mls/hr Q12H IV Last administered on 02/21/17 04:32; Start 02/21/17 at 06:00 Acetaminophen/ Hydrocodone Bitart (Belpre 10-325 Mg) 1 tab Q4H PRN PO PAIN SCALE 6 TO 10 Last administered on 02/21/17 07:54; Start 02/20/17 at 17:45 Acetaminophen/ Hydrocodone Bitart (Belpre 5-325 Mg) 1 tab Q4H PRN PO PAIN SCALE 1 TO 5; Start 02/20/17 at 17:45 Enoxaparin Sodium (Lovenox Inj) 40 mg Q24H SQ Last administered on 02/20/17 20: 58; Start 02/20/17 at 20:00 Nicotine (Habitrol 7 Mg Patch.24 Hr) 1 patch DAILY T-DERMAL Last administered on 02/21/17 07:54; Start 02/20/17 at 20:00 Miscellaneous Information 1 1 DAILY T-DERMAL Last administered on 02/21/17 07: 55; Start 02/21/17 at 09:00 Vancomycin HCl/ Sodium Chloride (Vancomycin Inj/ NS 250 ml Inj) 257.5 ml @ 250 mls/hr Q12H IV Last administered on 02/21/17 04:13; Start 02/21/17 at 05:00 Miscellaneous Information SPECIFIC LAB TO BE ... ONCE ONCE .XX ; Start 02/22 at 04:45; Stop 02/22/17 at 04:46 Potassium Chloride (KCl) 30 meq ONCE ONCE PO ; Start 02/21/17 at 10:30; Stop 02/21/17 at 10:39; Status DC A/P Assessment and Plan 41-year-old female with a past medical history significant for hepatitis C, IV drug use, history of recurrent abscesses, history of MRSA and endometriosis who presents to [facility] ED with complaints of left lower leg pain and swelling since Sunday and found to have a large erythematous abscess left lower leg. Sepsis with tachycardia and elevated white count with source of left lower leg abscess/cellulitis Previous history of MRSA Consult infectious disease Patient given vancomycin and cefepime in the ED. Will continue. Pending blood and wound cultures. Refused soft tissue ultrasound despite recommendations. Continue with pain control with Belpre. Will give Toradol when necessary for pain. Asymptomatic bacteriuria IV cefepime Follow-up on urine culture results Leukocytosis Tachycardia Improved. Secondary to UTI and left leg abscess Continue with IV antibiotics pending cultures and IV fluids. PRISCILLA Resolved. Continue to monitor trend. Hyponatremia Asymptomatic resolved. Hep C Transaminitis Elevated alkaline phosphatase Hep C reactive 01/22/16 Liver ultrasound shows mild hepatosplenomegaly. Improving. Noncompliance. Patient told to follow-up as outpatient. Ongoing tobaccoism IV drug use Discussed cessation/counseling Nicotine patch ordered DVT prophylaxis Lovenox 40sq Sandra Layton MD Feb 21, 2017 10:41
[2017-02-21] MEDS ORDERED: KETOROLAC TROMETHAMINE 30 MG/ML (IVP) VIAL IV PUSH PRN (10:45)
--- NOTE | 2017-02-21 11:14 | PD.CONS ---
History of Present Illness Service Infectious disease Consult Requested By Dr Layton Reason for Consult Evaluate patient with cellulitis left lower extremity Primary Care Physician No Primary Care Physician Diagnoses: History of Present Illness Patient seen and examined. Records reviewed. Patient is a 41-year-old female, presented to the hospital for further evaluation of pain and swelling on her left lower extremity. Patient states that she's had problem with multiple bug bites in her lower extremity. He developed swelling and pain on her left leg, and there was an area that looked like a boil, and she apparently drained it. It was not improving, and she continued to have the same symptoms so she presented to the hospital for further evaluation and treatment. She denies any fever or chills or sweats. A shunt has known IV drug use but denies injecting in her lower extremity. She usually injects in her upper extremity. On presentation patient's WBC was up to 27,000. She was tachycardic, but she is not febrile. She was started on broad-spectrum antibiotics. Today her white count is down to 12,000. She has not had any fever since admission. Infectious disease consultation has been requested to evaluate the patient. Review of Systems Constitutional: DENIES: Fever, Chills, Night Sweats Eyes: DENIES: Eye pain Ears, nose, mouth, throat: DENIES: Nasal discharge, Oral lesions, Throat pain, Ear Pain, Sinus Pain Respiratory: DENIES: Cough, Shortness of breath Cardiovascular: DENIES: Chest pain, Palpitations, Dyspnea on Exertion Gastrointestinal: DENIES: Abdominal pain, Constipation, Diarrhea, Nausea, Vomiting Genitourinary: DENIES: Dysuria, Nocturia Musculoskeletal: DENIES: Joint pain, Joint Swelling Integumentary: COMPLAINS OF: Rash Neurologic: DENIES: Headache Psychiatric: DENIES: Hallucinations Past Family Social History Allergies: Coded Allergies: *MDRO Multi-Drug Resistant Organism (Verified Adverse Reaction, Unknown, ) MRSA (forearm wound/fluid) - 01/18/16; MRSA (leg-06/02/16) Past Medical History IVDU Hep C Endometriosis Anxiety Recurrent abscesses Past Surgical History Previous I&D of the arm Right knee arthroscopic surgery Bronchoscopy Laparotomy Active Ordered Medications Tylenol [place] Dulcolax Cefepime Lovenox Portal Lactulose MOM Zofran Brenda-Colace Senokot Vancomycin Family History Noncontributory Social History Patient admits to tobacco use of 5 cigarettes per day. Previously she smoked half pack per day and began smoking at age 15. She denies any alcohol use. She admits to IV drug use of morphine, Dilaudid and oxycodone and last used IV Dilaudid 1 week ago. Physical Exam Vital Signs Vital Signs Date Time Temp Pulse Resp B/P Pulse Ox O2 Delivery O2 Flow Rate FiO2 02/21/17 08:54 18 02/21/17 08:00 95.8 66 15 113/75 100 02/21/17 04:00 97.0 64 20 92/60 99 02/21/17 00:00 97.0 65 20 93/53 100 02/20/17 19:43 97.5 71 18 93/57 100 Room Air 02/20/17 15:20 98.6 112 16 118/70 99 Room Air 02/20/17 12:48 98.6 116 16 115/70 99 Physical Exam GENERAL: Patient is a thin, well-developed female, awake and alert, not in respiratory distress. SKIN: Warm and dry. No generalized rash, no ecchymoses and no evidence of embolic lesions. HEAD: Atraumatic. Normocephalic. No temporal wasting, or tenderness. EYES: [place] conjunctiva. No petechia or hemorrhage. Pupils equal, round and reactive to light. Extraocular movements full and intact. No scleral icterus. No injection or drainage. EARS, NOSE AND THROAT: Nose without bleeding or purulent nasal discharge. No sinus tenderness. Mucous membranes pink and moist. No oral lesions noted. No exudate. No oral thrush. NECK: Trachea midline. Supple and not tender, no meningeal signs CARDIOVASCULAR: Regular rate and rhythm. No murmurs, rubs or gallops heard RESPIRATORY: Clear to auscultation. Breath sounds equal bilaterally. No rales , wheezing or rhonchi ABDOMEN: Soft, non-tender, nondistended. Bowel sounds present and normoactive. No guarding. No rebound. No organomegaly. EXTREMITIES: No clubbing, cyanosis, or edema. No joint effusion, has good ROM. No calf tenderness. Well perfused and warm. Has multiple track pack in her UE, some with induration. Has multiple round scars in her BLE from previous abscesses. Has a 1.5 inch crusted area on her anterior jewell with minimal erythema present. Has some smaller round crusted lesions in both legs with no periwound redness NEUROLOGICAL: Awake and alert. Cranial nerves grossly intact. Motor grossly within normal limits. PSYCHIATRIC: Normal affect, calm and cooperative. LINE: No evidence of infection Laboratory Laboratory Tests Test 02/20/17 02/20/17 02/20/17 02/20/17 15:45 16:34 17:15 21:42 White Blood Count 27.1 Red Blood Count 4.15 Hemoglobin 11.8 Hematocrit 33.0 Mean Corpuscular Volume 79.4 Mean Corpuscular Hemoglobin 28.5 Mean Corpuscular Hemoglobin 35.9 Concent Red Cell Distribution Width 14.6 Platelet Count 433 Mean Platelet Volume 7.2 Neutrophils (%) (Auto) 95.5 Lymphocytes (%) (Auto) 2.7 Monocytes (%) (Auto) 1.7 Eosinophils (%) (Auto) 0.0 Basophils (%) (Auto) 0.1 Neutrophils # (Auto) 25.8 Lymphocytes # (Auto) 0.7 Monocytes # (Auto) 0.5 Eosinophils # (Auto) 0.0 Basophils # (Auto) 0.0 CBC Comment DIFF FINAL Differential Comment Urine Color YELLOW Urine Turbidity HAZY Urine pH 5.5 Urine Specific [place] 1.010 Urine Protein TRACE Urine Glucose (UA) NEG Urine Ketones NEG Urine Occult Blood NEG Urine Nitrite NEG Urine Bilirubin NEG Urine Urobilinogen 2.0 Urine Leukocyte Esterase LARGE Urine RBC 16 Urine WBC 11 Urine Squamous Epithelial 10 Cells Urine Amorphous Sediment RARE Urine Bacteria MANY Urine Mucus FEW Microscopic Urinalysis Comment CULTURE INDICATED Sodium Level 132 Potassium Level 4.7 Chloride Level 99 Carbon Dioxide Level 24.6 Anion Gap 8 Blood Urea Nitrogen 16 Creatinine 1.07 Estimat Glomerular Filtration 57 Rate Random Glucose 113 Calcium Level 8.6 Total Bilirubin 1.1 Direct Bilirubin LESS THAN 0.1 Aspartate Amino Transf 105 (AST/SGOT) Alanine Aminotransferase 38 (ALT/SGPT) Alkaline Phosphatase 431 Total Protein 9.0 Albumin 2.5 Urine Opiates Screen POS Urine Barbiturates Screen NEG Urine Amphetamines Screen NEG Urine Benzodiazepines Screen NEG Urine Cocaine Screen NEG Urine Cannabinoids Screen POS Lactic Acid Level 2.6 1.1 Test 02/21/17 02/21/17 05:26 05:56 Sodium Level 142 Potassium Level 3.2 Chloride Level 111 Carbon Dioxide Level 23.7 Anion Gap 7 Blood Urea Nitrogen 14 Creatinine 0.66 Estimat Glomerular Filtration 99 Rate Random Glucose 98 Calcium Level 8.3 Total Bilirubin 0.3 Aspartate Amino Transf 28 (AST/SGOT) Alanine Aminotransferase 24 (ALT/SGPT) Alkaline Phosphatase 275 Total Protein 7.2 Albumin 2.1 White Blood Count 12.2 Red Blood Count 3.84 Hemoglobin 10.2 Hematocrit 31.4 Mean Corpuscular Volume 81.9 Mean Corpuscular Hemoglobin 26.5 Mean Corpuscular Hemoglobin 32.3 Concent Red Cell Distribution Width 15.1 Platelet Count 375 Mean Platelet Volume 6.8 Neutrophils (%) (Auto) 74.7 Lymphocytes (%) (Auto) 19.6 Monocytes (%) (Auto) 4.7 Eosinophils (%) (Auto) 0.7 Basophils (%) (Auto) 0.3 Neutrophils # (Auto) 9.1 Lymphocytes # (Auto) 2.4 Monocytes # (Auto) 0.6 Eosinophils # (Auto) 0.1 Basophils # (Auto) 0.0 CBC Comment DIFF FINAL Differential Comment Date/Time Procedure Status Source Growth 02/20/17 15:45 Urine Culture Received Urine Clean Catch Pending 02/20/17 15:45 Gram Stain - Final Resulted Wound Leg 02/20/17 15:45 Wound Culture Resulted Wound Leg Pending 02/20/17 15:45 Aerobic Blood Culture Received Blood Line Pending 02/20/17 15:45 Anaerobic Blood Culture Received Blood Line Pending Result Diagram: 02/21/17 0556 02/21/17 0526 Imaging Last Impressions Liver Ultrasound 02/20/17 0000 Signed Impressions: Service Date/Time: Monday, February 20, 2017 19:45 - CONCLUSION: 1. Mild hepatosplenomegaly. Gallbladder wall thickening. No gallstones or biliary ductal dilatation. Esteban Whatley MD Assessment and Plan Assessment and Plan IMPRESSION Crusted round lesions LLE, prob drained abscess, with minimal redness now, looks like a big impetigo Leukocytosis, much improved Known IVDU Hx recurrent abscesses RECOMMENDATION Change cefepime to Cipro Continue IV Vanco for now We'll have the patient take a shower and wash with chlorhexidine to decrease bacterial colonization Patient should be able to be discharged and I would recommend giving 7 days of Cipro and Clinda Clinically she looks stable from the infectious disease standpoint Thank you for this consultation Discussed Condition With Discussed with Gi Rockwell MD Feb 21, 2017 11:14
[2017-02-21 12:00] VITALS: BP 125/73; PULSE 63; RESP 20; TEMP 97; O2SAT 99
[2017-02-21] MEDS ORDERED: CHLORHEXIDINE GLUCONATE 4% SOLN 120 ML BTL TOPICAL ONE (12:00)
[2017-02-21] MEDS: CIPROFLOXACIN 750 MG TAB PO SCH ×2 (13:23→23:43)
[2017-02-21 20:00] VITALS: BP 122/82; PULSE 60; RESP 16; TEMP 97.6; O2SAT 98
[2017-02-21] MEDS: ENOXAPARIN SODIUM 40 MG/0.4 ML SYRINGE SQ SCH (20:00)
[2017-02-22] VITALS: BP 115/66; PULSE 62; RESP 16; TEMP 97.5; O2SAT 97
[2017-02-22] MEDS: ACETAMINOPHEN/HYDROcodone 325 MG/10 MG TAB PO PRN ×2 (04:38→08:44)
[2017-02-22] MEDS ORDERED: PHARMACY ORDERED LAB ONE (04:45)
[2017-02-22] MEDS: VANCOMYCIN INJ 750 MG in SODIUM CHLOR 0.9% 250 ML INJ 250 ML IV SCH (04:49)
[2017-02-22 06:11] LABS: HEMATOCRIT 32.6 % (35.0-46.0); MEAN CORPUSCULAR HEMOGLOBIN 26.7 PG (27.0-34.0); MEAN CORPUSCULAR HGB CONC 32.6 % (32.0-36.0); PLATELET COUNT 318 TH/MM3 (150-450); RED BLOOD COUNT 3.98 MIL/MM3 (4.00-5.30); RED CELL DISTRIBUTION WIDTH 14.9 % (11.6-17.2); REVIEW FLAG FINAL
[2017-02-22 06:19] LABS: BICARBONATE 22.4 MEQ/L (21.0-32.0)
[2017-02-22 08:00] VITALS: BP 145/81; PULSE 52; RESP 16; TEMP 95.6; O2SAT 97
[2017-02-22] MEDS: DOCUSATE SODIUM 50 MG/SENNA 8.6 MG TAB PO SCH (08:03)
[2017-02-22] MEDS: SODIUM CHLORIDE 0.9% FLUSH 10 ML FLUSH IV FLUSH SCH (08:03)
[2017-02-22] MEDS: NICOTINE 7 MG/24 HR PATCH T-DERMAL SCH (08:04)
[2017-02-22] MEDS: SODIUM CHLOR 0.9% 1000 ML INJ 1,000 ML IV SCH (08:05)
[2017-02-22] MEDS: REMOVE OLD NICOTINE PATCH T-DERMAL SCH (08:05)
[2017-02-22] MEDS ORDERED: CLIN1CAP5 PO (11:04)
[2017-02-22] MEDS ORDERED: CIPR750T2 PO (11:04)
--- NOTE | 2017-02-22 11:06 | HHI.DCPOC ---
Discharge Care Plan Diagnosis: (1) Impetigo (2) Cellulitis Goals to Promote Your Health * To prevent worsening of your condition and complications * To maintain your health at the optimal level Directions to Meet Your Goals Take your medications as prescribed Follow your dietary instruction Follow activity as directed Keep your appointments as scheduled Take your immunizations and boosters as scheduled If your symptoms worsen call your PCP, if no PCP go to Urgent Care Center or Emergency Room Smoking is Dangerous to Your Health. Avoid second hand smoke Call the 24-hour hour crisis hotline for domestic abuse at Sandra Layotn MD Feb 22, 2017 11:06
--- NOTE | 2017-02-22 11:07 | HHI.DS ---
Discharge Summary Admission Date Feb 20, 2017 at 17:09 Admitting Diagnosis SEPSIS abscess, cellulitis, UTI Brief History - From Admission This is a 41-year-old female with a past medical history significant for hepatitis C, IV drug use, history of recurrent abscesses, history of MRSA and endometriosis who presents to [facility] ED with complaints of left lower leg pain and swelling since Sunday. Patient thinks she may have been bitten by a bug. She is adamant that she did not inject IV drugs in the leg. She states on Sunday she drained the area herself with a large amount of pus expressed followed by application of topical Neosporin. She endorses fever and chills. She denies any numbness, tingling or weakness in the area. She reports some chest pain today but she attributes that to anxiety coming into the hospital. She denies any shortness of breath. She denies any hematuria or dysuria. She denies any diarrhea or constipation. In the ED, patient is found to have elevated white count of 27.1. She is tachycardic with a heart rate of 116. She is afebrile. Lactic acid is pending. CBC/BMP: 02/22/17 0515 02/22/17 0515 Significant Findings Laboratory Tests Test 02/20/17 02/20/17 02/20/17 02/21/17 15:45 16:34 17:15 05:26 White Blood Count 27.1 TH/MM3 (4.0-11.0) Hematocrit 33.0 % (35.0-46.0) Mean Corpuscular Volume 79.4 FL (80.0-100.0) Neutrophils (%) (Auto) 95.5 % (16.0-70.0) Lymphocytes (%) (Auto) 2.7 % (9.0-44.0) Neutrophils # (Auto) 25.8 TH/MM3 (1.8-7.7) Lymphocytes # (Auto) 0.7 TH/MM3 (1.0-4.8) Urine Turbidity HAZY (CLEAR) Urine Leukocyte Esterase LARGE (NEG) Urine RBC 16 /hpf (0-3) Urine WBC 11 /hpf (0-5) Urine Bacteria MANY /hpf (NONE) Urine Mucus FEW /lpf (OCC) Sodium Level 132 MEQ/L (136-145) Creatinine 1.07 MG/DL (0.50-1.00) Estimat Glomerular Filtration 57 ML/MIN (>89) Rate Random Glucose 113 MG/DL (74-106) Total Bilirubin 1.1 MG/DL (0.2-1.0) Aspartate Amino Transf 105 U/L (15-37) (AST/SGOT) Alkaline Phosphatase 431 U/L 275 U/L (45-117) (45-117) Total Protein 9.0 GM/DL (6.4-8.2) Albumin 2.5 GM/DL 2.1 GM/DL (3.4-5.0) (3.4-5.0) Urine Opiates Screen POS (NEG) Urine Cannabinoids Screen POS (NEG) Lactic Acid Level 2.6 mmol/L (0.4-2.0) Potassium Level 3.2 MEQ/L (3.5-5.1) Chloride Level 111 MEQ/L (98-107) Calcium Level 8.3 MG/DL (8.5-10.1) Test 02/21/17 02/22/17 05:56 05:15 White Blood Count 12.2 TH/MM3 (4.0-11.0) Red Blood Count 3.84 MIL/MM3 3.98 MIL/MM3 (4.00-5.30) (4.00-5.30) Hemoglobin 10.2 GM/DL 10.6 GM/DL (11.6-15.3) (11.6-15.3) Hematocrit 31.4 % 32.6 % (35.0-46.0) (35.0-46.0) Mean Corpuscular Hemoglobin 26.5 PG 26.7 PG (27.0-34.0) (27.0-34.0) Mean Platelet Volume 6.8 FL (7.0-11.0) Neutrophils (%) (Auto) 74.7 % (16.0-70.0) Neutrophils # (Auto) 9.1 TH/MM3 (1.8-7.7) Chloride Level 113 MEQ/L (98-107) Estimat Glomerular Filtration 88 ML/MIN (>89) Rate Calcium Level 8.2 MG/DL (8.5-10.1) PE at Discharge GENERAL: This is a thin frail female, in no apparent distress sleeping in bed. SKIN: 6 cm indurated area on the left anterior jewell with drastic improvement and erythema around the area. The is soft and fluctuant but no active drainage noted. CARDIOVASCULAR: Regular rate and rhythm without murmurs, gallops, or rubs. RESPIRATORY: Clear to auscultation. Breath sounds equal bilaterally. No wheezes , rales, or rhonchi. GASTROINTESTINAL: Abdomen soft, non-tender, nondistended. No hepato-splenomegaly , or palpable masses. No guarding. MUSCULOSKELETAL: Extremities without clubbing, cyanosis, or edema. No joint tenderness, effusion, or edema noted. No calf tenderness. NEUROLOGICAL: Awake and alert. Able to move all extremities. Normal speech. Pt Condition on Discharge: Good Discharge Disposition: Discharge Home Discharge Instructions DIET: Follow Instructions for: As Tolerated, No Restrictions Activities you can perform: Regular-No Restrictions Sandra Layton MD Feb 22, 2017 11:07
[2017-02-22 12:00] VITALS: BP 138/85; PULSE 59; RESP 16; TEMP 97.1; O2SAT 96
[2017-02-22] MEDS: CIPROFLOXACIN 750 MG TAB PO SCH (12:17)
[2017-02-22] MEDS ORDERED: VANCOMYCIN 1,000 MG/NS 250 ML IV SCH ×2 (17:00)
[2017-02-24] MEDS ORDERED: PHARMACY ORDERED LAB ONE (04:45)
== END 2017-02-22 13:46 | disposition home or self-care (01) | DRG 872 ==
LOC: NEPD 12:43 → NEDA 17:09 → N07A 21:21
PROVIDERS: ADMIT Family Medicine; ATTEND Family Medicine
DX: A41.9 Sepsis, unspecified organism (principal); N17.9 Acute kidney failure, unspecified; E87.1 Hypo-osmolality and hyponatremia; L03.116 Cellulitis of left lower limb; L02.416 Cutaneous abscess of left lower limb; N39.0 Urinary tract infection, site not specified; B19.20 Unspecified viral hepatitis C without hepatic coma; E86.0 Dehydration; L01.00 Impetigo, unspecified; L02.92 Furuncle, unspecified; F19.90 Other psychoactive substance use, unspecified, uncomplicated; F41.9 Anxiety disorder, unspecified; F17.210 Nicotine dependence, cigarettes, uncomplicated; T63.301A Toxic effect of unspecified spider venom, accidental (unintentional), initial encounter; Z86.14 Personal history of Methicillin resistant Staphylococcus aureus infection; Z91.19 Patient's noncompliance with other medical treatment and regimen; Y92.9 Unspecified place or not applicable; B95.62 Methicillin resistant Staphylococcus aureus infection as the cause of diseases classified elsewhere; N80.9 Endometriosis, unspecified
CPT/HCPCS: 76705; 80048; 80053; 80202; 80307; 81001; 82248; 83605; 84703; 85025; 85027; 86403; 87040; 87070; 87086; 87147; 87186; 96374; J0692; J1650; J1885; J2405; J3370; J7030; J7050